=== PATIENT | male | born 1995 | race Asian ===

== ENCOUNTER → 2017-02-23 | Outpatient (CLI) | payer OTHER ==
--- NOTE | 2017-02-23 18:03 | DIAGNOSTIC IMAGING REPORT ---
MRI OF THE LEFT KNEE CLINICAL HISTORY: Left knee effusion. Left knee pain. Skiing injury. COMPARISON STUDY: Radiograph of left knee dated 01/27/2017. TECHNIQUE: MRI of the left knee was performed utilizing proton density, T1, and T2-weighted sequences in the axial, sagittal, coronal planes. IV contrast was not administered for this examination. FINDINGS: Menisci: The medial and lateral menisci are intact. Ligaments: The anterior and posterior cruciate ligaments are intact. The medial and lateral collateral ligaments are within normal limits. Extensor mechanism: The extensor mechanism is intact. Hoffa's fat pad is normal in appearance. Articular cartilage and bone: There are large bony contusions within the medial patellar facet and along the peripheral aspect of the lateral femoral condyle. The contusion pattern is consistent with a patellar dislocation/relocation injury. There is an approximately 6 mm osteochondral defect identified along the medial patellar facet, best seen on axial image #14. The bone fragment is not identified. There is less than 50% fissuring of the articular cartilage at the patellar apex seen on axial image #11. Mild contusion is seen within the medial femoral condyle. The articular cartilage in the medial and lateral compartments is well maintained. Joint effusion: There is a small to moderate joint effusion. Soft tissues: There is rupture of the medial patellar retinaculum with overlying superficial and deep soft tissue edema. The musculature surrounding the knee joint is normal in bulk and signal intensity. IMPRESSION: 1. There are large bony contusions within the medial patellar facet and the lateral femoral condyle consistent with a patellar dislocation/relocation injury. 2. There is tearing of the medial patellar retinaculum. 3. There is a 6 mm osteochondral defect identified along the medial patellar facet. The fragment is not identified. 4. A small bony contusion is present within the medial femoral condyle. 5. The menisci, cruciate ligament, and collateral alignment appear maintained. 6. There is a small to moderate joint effusion. 7. Superficial and deep soft tissue edema is present along the anteromedial aspect of the knee. Electronically signed by: Curt Oh M.D. 02/23/2017 6:01 PM Dictated Date/Time: 02/23/2017 5:55 PM
== END | disposition home or self-care (01) ==
LOC: C.MRI 16:19
PROVIDERS: ATTEND Family Medicine Sports Medicine
DX: M25.462 Effusion, left knee (principal); S80.02XA Contusion of left knee, initial encounter; S86.812A Strain of other muscle(s) and tendon(s) at lower leg level, left leg, initial encounter; V00.328A Other snow-ski accident, initial encounter; Y93.23 Activity, snow (alpine) (downhill) skiing, snowboarding, sledding, tobogganing and snow tubing